=== PATIENT | female | born 1995 | race Hispanic/Latino ===

== ENCOUNTER 2020-06-17 07:13 | Inpatient (IN) | payer BC, OTHER ==
[~2020-06-17] VITALS: Ht 162.6 cm; Wt 92.1 kg
[2020-06-17 07:46] LABS: BASOPHILS % (AUTO) 0.2 % (0.0-5.0); EOSINOPHILS % (AUTO) 0.3 % (0.0-8.0); HEMATOCRIT 41.8 % (36-48); MEAN CORPUSCULAR HEMOGLOBIN 29.6 pg (27.0-33.0); MEAN CORPUSCULAR VOLUME 87.3 fL (79-99); MONOCYTES % (AUTO) 4.9 % (3.0-13.0); NEUTROPHILS % (AUTO) 71.2 % (40.0-77.0); PLATELET COUNT (AUTO) 228 K/uL (130-400); RED BLOOD CELL COUNT(AUTO) 4.79 MIL/uL (4.00-5.50); RED CELL DISTRIBUTION WIDTH 13.1 % (11.0-15.5); WHITE BLOOD COUNT (AUTO) 11.2 K/uL (4.8-10.8)
[2020-06-17 07:47] LABS: APPEARANCE,URINE Clear (CLEAR); BILIRUBIN,URINE Negative (NEGATIVE); COLOR,URINE Yellow (YELLOW); GLUCOSE, URINE (UA) Negative (NEGATIVE); KETONES,URINE 15 mg/dL (NEGATIVE); LEUKOCYTE ESTERASE ,URINE Trace (NEGATIVE); NITRATE,URINE Negative (NEGATIVE); OCCULT BLOOD,URINE Large (NEGATIVE); PH,URINE 6.5 (5.0-8.0); PROTEIN,URINE Negative (NEGATIVE); UROBILINOGEN,URINE 0.2 mg/dL (0.2-1.0)
[2020-06-17 08:04] LABS: BACTERIA,URINE Moderate /HPF (None Seen); SQUAMOUS EPITHELIAL CELL,UR Many /HPF (0-2)
[2020-06-17 09:36] LABS: CREATININE 0.6 mg/dL (0.5-1.5); POTASSIUM 3.8 mmol/L (3.5-5.1)
[2020-06-17 11:41] VITALS: BP 118/62
[2020-06-17] MEDS ORDERED: OXYTOCIN-LR 20 UNITS/1000 ML 1,000 ML IV SCH (11:45)
[2020-06-17] MEDS: LACTATED RINGERS 1000ML 1,000 ML IV PRN ×2 (11:47→21:04)
[2020-06-17 13:37] LABS: AMPHET/METH SCREEN,URINE NEGATIVE (NEGATIVE); BARBITURATE SCREEN, URINE NEGATIVE (NEGATIVE); BENZODIAZEPINES SCREEN,URINE NEGATIVE (NEGATIVE); CANNABINOID SCREEN,URINE NEGATIVE (NEGATIVE); COCAINE SCREEN,URINE NEGATIVE (NEGATIVE); OPIATE SCREEN,URINE NEGATIVE (NEGATIVE); PHENCYCLIDINE SCREEN,URINE NEGATIVE (NEGATIVE)
[2020-06-17] MEDS: AMPICILLIN 2GM+NS 100ML 100 ML IV SCH ×2 (15:00→21:04)
[2020-06-17] MEDS: DOCUSATE SODIUM 100 MG CAP PO SCH (21:04)
[2020-06-17] MEDS: BUTORPHANOL TARTRATE 2 MG/ML IVP PRN (21:33)
[2020-06-18] MEDS: BUTORPHANOL TARTRATE 2 MG/ML IVP PRN ×3 (00:54→13:49)
[2020-06-18] MEDS: AMPICILLIN 2GM+NS 100ML 100 ML IV SCH ×4 (03:57→21:00)
[2020-06-18] MEDS: LACTATED RINGERS 1000ML 1,000 ML IV PRN (08:00)
[2020-06-18] MEDS ORDERED: OXYTOCIN-LR 20 UNITS/1000 ML 1,000 ML IV SCH (08:15)
[2020-06-18] MEDS: DOCUSATE SODIUM 100 MG CAP PO SCH ×2 (08:35→21:22)
[2020-06-18] MEDS ORDERED: ACETAMINOPHEN 325 MG TAB PO PRN (15:00)
[2020-06-18] MEDS ORDERED: ACETAMINOPHEN WITH CODEINE 1 TAB TAB PO PRN (15:00)
[2020-06-18] MEDS ORDERED: WITCH HAZEL 1 PAD TP PRN (15:00)
[2020-06-18] MEDS ORDERED: LANOLIN 30GM OINTMENT TP PRN (15:00)
[2020-06-18] MEDS ORDERED: BENZOCAINE/LANOLIN/ALOE VERA 60 ML AEROSOL TP PRN (15:00)
[2020-06-18 17:20] VITALS: BP 119/69
[2020-06-18] MEDS ORDERED: PREN1TAB63 PO (18:27)
[2020-06-18] MEDS: IBUPROFEN 600 MG TABLET PO PRN (18:34)
[2020-06-18 18:38] VITALS: BP 113/71
[2020-06-18] MEDS ORDERED: DOCUSATE SODIUM 100 MG CAP PO SCH (21:00)
[2020-06-19 00:32] VITALS: BP 114/72
[2020-06-19 04:15] VITALS: BP 89/57
[2020-06-19 06:56] VITALS: BP 94/54
[2020-06-19] MEDS: DOCUSATE SODIUM 100 MG CAP PO SCH (08:46)
[2020-06-19] MEDS: IBUPROFEN 600 MG TABLET PO PRN (08:47)
== END 2020-06-19 10:20 | disposition home or self-care (01) | DRG 779 ==
LOC: EDH 07:13 → OBSVTOIN 07:14 → LDH 07:14 → WSH 06-18 17:04
PROVIDERS: ADMIT Obstetrics & Gynecology; ATTEND Obstetrics & Gynecology
DX: O03.6 Delayed or excessive hemorrhage following complete or unspecified spontaneous abortion (principal); O34.32 Maternal care for cervical incompetence, second trimester; Z3A.18 18 weeks gestation of pregnancy
CPT/HCPCS: 36415; 76805; 80048; 80305; 81001; 84702; 85025; 86701; 86850; 86900; 86901; 87077; 87088; 87186; 87390; 96360; 96361; A4351; G0378; J0290; J0595; J2590; J7120